=== PATIENT | male | born 2000 | race Caucasian/White ===

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

== ENCOUNTER 2023-12-05 22:02 | Emergency (ER) | payer OTHER ==
[2023-12-05 22:07] VITALS: BP 122/59; PULSE 86; RESP 17; TEMP 99.8; BMI 25.2
[2023-12-05] MEDS ORDERED: AMOX TR/POT CLAV 875MG/125MG TABLETS (FP) ONE (22:35)
[2023-12-05] MEDS: AMOX TR/POT CLAV 875MG/125MG TABLETS (FP) PO ONE (22:38)
== END 2023-12-05 23:08 | disposition home or self-care (01) ==
LOC: JERFT 22:02
DX: K04.7 Periapical abscess without sinus (principal)
CPT/HCPCS: 99283-25

== ENCOUNTER 2023-12-08 14:51 | Emergency (ER) | payer OTHER ==
[2023-12-08 15:39] VITALS: BP 111/70; PULSE 91; RESP 16; TEMP 98.3; BMI 25.1
== END 2023-12-08 16:10 | disposition home or self-care (01) ==
LOC: JERFT 14:51
DX: L02.411 Cutaneous abscess of right axilla (principal)
CPT/HCPCS: 99283-25